=== PATIENT | male | born 1955 | race Caucasian/White ===

== ENCOUNTER 2018-08-07 07:28 | Inpatient (IN) | payer OTHER ==
[2018-08-07] MEDS ORDERED: ONDANSETRON 4 MG/2 ML VIAL IVPUSH ONE (07:40)
[2018-08-07] MEDS ORDERED: morphine CARPU-JECT 4 MG/1 ML DISP.SYRIN IVPUSH ONE (07:40)
[2018-08-07] MEDS ORDERED: SODIUM CHLORIDE 1,000 ML IV ONE (07:40)
[2018-08-07] MEDS ORDERED: HYDROmorphone HCL CARPU-JECT 1 MG/1 ML DISP.SYRIN IVPUSH ONE ×2 (07:45→10:02)
[2018-08-07] MEDS ORDERED: ONDANSETRON 4 MG/2 ML VIAL ONE (07:45)
[2018-08-07] MEDS ORDERED: HYDROmorphone HCL CARPU-JECT 1 MG/1 ML DISP.SYRIN ONE ×2 (07:45→10:02)
--- NOTE | 2018-08-07 08:11 | PDOC ---
History of Present Illness - General Chief Complaint: Pain Stated Complaint: llq pain Time Seen by Provider: 08/07/18 07:32 History Source: Patient Exam Limitations: No Limitations - History of Present Illness Initial Comments: 08/07/18 08:05 63-year-old male with history of chronic pain syndrome and diverticulitis resents with 3-4 days of progressive left lower quadrant pain similar to past diverticulitis. Patient recalls relatively acute onset of left lower quadrant pain while having an otherwise normal bowel movement 4 days ago, since then pain has been persistent but increasing in severity and radiating to the right lower quadrant. Associated with watery diarrhea with no bloody stool, one episode of nonbloody nonbilious vomiting last night after he attempted to eat solid food. Decreased oral intake, no fevers or chills or night sweats. Denies any urinary complaints, denies any rash or swelling. Did not take anything for pain other than his baseline meds for his musculoskeletal pains, presents for evaluation. No intra-abdominal surgical history. Past History - Past Medical History Allergies/Adverse Reactions: Allergies Allergy/AdvReac Type Severity Reaction Status Date / Time folic acid Allergy Verified 08/07/18 07:31 Home Medications: Ambulatory Orders Alprazolam [Xanax] 0.5 mg PO BID 05/30/12 Cholecalciferol (Vitamin D3) [Vitamin D] 5,000 unit PO DAILY 05/30/12 FENTANYL 100mcg PATCH [DURAGESIC 100mcg PATCH -] 300 mcg TD Q72H 05/30/12 PARoxetine HCL "CR" SUST REL [Paxil Cr -] 25 mg PO DAILY 05/30/12 Anemia: No Asthma: No Cancer: No Cardiac Disorders: No CVA: No COPD: No CHF: No Dementia: No Diabetes: No GI Disorders: No Disorders: No HTN: No Hypercholesterolemia: No Liver Disease: No Seizures: No Thyroid Disease: No - Surgical History Abdominal Surgery: No Appendectomy: No Cardiac Surgery: No Cholecystectomy: No Lung Surgery: No Neurologic Surgery: No Orthopedic Surgery: Yes (VICTORINA SHOULDER ARTHROSCOPY) - Suicide/Smoking/Psychosocial Hx Smoking History: Former smoker Have you smoked in the past 12 months: No If you are a former smoker, when did you quit?: 1979 Hx Alcohol Use: Yes (SOCIALLY) Drug/Substance Use Hx: No Substance Use Type: None Hx Substance Use Treatment: No Review of Systems - Review of Systems Constitutional: No: Chills, Fever, Night Sweats Respiratory: No: Shortness of Breath Cardiac (ROS): No: Chest Pain ABD/GI: Yes: See HPI, Diarrhea, Nausea, Vomiting : No: Dysuria, Flank Pain, Hematuria Neurological: No: Headache All Other Systems: Reviewed and Negative *Physical Exam - Physical Exam Comments: 08/07/18 08:09 afebrile GENERAL: The patient is awake, alert, and fully oriented, in moderate distress 2 /2 abdominal pain HEAD: Normal with no signs of trauma. EYES: PERRL, EOMI, sclera anicteric, conjunctiva clear with no pallor. ENT: oropharynx clear without exudates. Dry mucous membranes. NECK: Normal range of motion, supple without lymphadenopathy. LUNGS: Breath sounds equal, clear to auscultation bilaterally. No wheeze/ crackles. HEART: Regular rate and rhythm, normal S1 and S2 without murmur or rub. ABDOMEN: Soft/nondistended. + tenderness with guarding greatest in the LLQ but also notable in the RLQ. BS nl to decreased. + rebound. No palpable masses/ hernias. No hepatosplenomegaly. No CVAT. EXTREMITIES: RUE in sling for comfort 2/2 pain, otherwise normal range of motion , no edema. 2+ distal pulses. No cords, erythema, or tenderness. NEUROLOGICAL: Cranial nerves II through XII grossly intact. Normal speech, normal gait. PSYCH: Normal mood, normal affect. SKIN: RLQ subcutaneous device for pain. Warm, Dry, no rashes or lesions noted. Heart Score/ECG Review #1 ECG reviewed & interpreted by me at: 08:06 General ECG Interpretation: Sinus Rhythm, Normal Rate (86), Normal Intervals ( qtc 440), No acute ischemic changes ED Treatment Course - LABORATORY CBC & Chemistry Diagram: 08/07/18 08:16 08/07/18 08:16 - RADIOLOGY Radiology Studies Ordered: Category Date Time Status ABDOMEN & PELVIS CT WITH CONTR [CT] Stat CT Scan 08/07/18 07:41 Ordered Medical Decision Making - Medical Decision Making 08/07/18 08:12 63-year-old male with history of diverticulitis presents with worsening lower quadrant pain and peritoneal findings on exam. Presentation could be consistent with exacerbation of diverticulitis, rule out superimposed perforation/abscess. Possible colitis, appendicitis, less likely urinary etiology. No evidence of hernia. Labs, urinalysis EKG IV fluid rehydration, pain control CT of the abdomen and pelvis No evidence of SIRS or sepsis at this time, will give antibiotics accordingly Likely admission 08/07/18 08:54 Leukocytosis 13 with normal differential, normal creatinine, mild hyponatremia, hypokalemia, hypochloremia. Lipase pending. Receiving IV fluids, will give potassium. Pain improved with Dilaudid, in route CAT scan. 08/07/18 10:25 CT shows unchanged bilary dilatation, diverticulosis without diverticulitis, but dilated appendix with inflammatory changes suspicious for appendicitis. new lung nodule requiring additional imaging/follow-up. zosyn ordered. Findings discussed with Dr. Saavedra (pt's PCP) who accepts for inpatient med surg. Patient and Quentin request Tino/Jessica for surgery, who were consulted. 08/07/18 11:[address] Jiménez, who will see the patient and arrange for OR likely later today. Pt has been admitted to inpatient floor and information passed on to inpatient team. *DC/Admit/Observation/Transfer Diagnosis at time of Disposition: Abdominal pain, left lower quadrant Acute appendicitis Qualifiers: Acute appendicitis type: with localized peritonitis Appendicitis gangrene presence: unspecified whether gangrene present Appendicitis perforation presence : without perforation Appendicitis abscess presence: without abscess Qualified Code(s): K35.30 - Acute appendicitis with localized peritonitis, without perforation or gangrene - Discharge Dispostion Condition at time of disposition: Fair - Referrals - Patient Instructions - Post Discharge Activity
[2018-08-07 08:24] LABS: BASO % 0.2 % (0-2.0); EOS % 0.2 % (0-4.5); HEMATOCRIT 43.6 % (35.4-49); HEMOGLOBIN 14.8 GM/dl (11.7-16.9); LYMPH % 11.8 % (8-40); MCH 31.5 pg (25.7-33.7); MCHC 33.9 g/dl (32.0-35.9); MEAN CELL VOLUME 92.9 fl (80-96); MEAN PLT VOLUME 8.1 fl (7.5-11.1); MONO % 5.4 % (3.8-10.2); NEUT % 82.4 % (42.8-82.8); PLATELET COUNT 151 K/MM3 (134-434); RBC 4.69 M/mm3 (4.00-5.60); RDW 13.8 % (11.9-15.9); WHITE BLOOD COUNT 13.1 K/mm3 (4.0-10.8)
[2018-08-07 08:33] LABS: ALBUMIN 3.7 g/dl (3.4-5.0); ALK PHOS 144 U/L (45-117); ANION GAP 11 MMOL/L (8-16); BLOOD UREA NITROGEN 12 mg/dl (7-18); CALCIUM 8.8 mg/dl (8.5-10); CHLORIDE 90 mmol/L (98-107); CO2 33 mmol/L (21-32); CREATININE 0.9 mg/dl (0.55-1.3); GLUCOSE,RANDOM 119 mg/dl (74-106); POTASSIUM 3.2 mmol/L (3.5-5.1); SGOT/AST 21 U/L (15-37); SGPT/ALT 7 U/L (13-61); SODIUM 134 mmol/L (136-145)
[2018-08-07] MEDS ORDERED: POTASSIUM CHLORIDE TABS 20 MEQ TABLET.ER (FP) PO ONE (08:52)
[2018-08-07 09:00] LABS: URINE APPEARANCE CLEAR; URINE BILIRUBIN NEGATIVE (NEGATIVE); URINE COLOR AMBER; URINE GLUCOSE (UA) NEGATIVE (NEGATIVE); URINE KETONE NEGATIVE (NEGATIVE); URINE LEUK ESTERASE NEGATIVE (NEGATIVE); URINE NITRITE NEGATIVE (NEGATIVE); URINE PROTEIN NEGATIVE (NEGATIVE); URINE UROBILINOGEN 4.0 E.U/dl (0.2-1.0)
[2018-08-07 09:24] LABS: LIPASE 83 U/L (73-393)
[2018-08-07] MEDS ORDERED: PIPERACILLIN/TAZOB 4.5 GM 4.5 GM in DEXTROSE 5%-WATER 100 ML IVPB ONE (09:58)
[2018-08-07] MEDS ORDERED: PIPERACILLIN/TAZOBACTAM 4.5 GM VIAL IVPB ONE (10:02)
[2018-08-07] MEDS ORDERED: KCL 10 MEQ IVPB 10 MEQ/100 ML INFUS.BAG IVPB ONE (10:26)
[2018-08-07] MEDS: KCL 10 MEQ IVPB 10 MEQ/100 ML INFUS.BAG IVPB SCH ×3 (11:00→17:40)
[2018-08-07] MEDS ORDERED: HYDROmorphone HCL CARPU-JECT 1 MG/1 ML DISP.SYRIN IVPUSH PRN (11:41)
[2018-08-07] MEDS ORDERED: D5-1/2NS+20 MEQ KCL - 20 MEQ/1,000 ML INFUS.BAG IV SCH ×2 (11:45→15:00)
[2018-08-07] MEDS ORDERED: HYDROmorphone HCl 2 MG/ML VIAL IVPB PRN (13:55)
[2018-08-07] MEDS ORDERED: ROCURONIUM BROMIDE 50 MG/5 ML VIAL ONE (14:03)
[2018-08-07] MEDS ORDERED: SUCCINYLCHOLINE CHLORIDE 200 MG/10 ML VIAL ONE (14:03)
[2018-08-07] MEDS ORDERED: MIDAZOLAM HCL 2 MG/2 ML SINGLE DOSE VIAL ONE (14:03)
[2018-08-07] MEDS ORDERED: NALOXONE HCL 0.4 MG/ML VIAL IVPUSH PRN (14:22)
[2018-08-07] MEDS ORDERED: ONDANSETRON 4 MG/2 ML VIAL IVPUSH PRN (14:42)
[2018-08-07] MEDS ORDERED: oxyCODONE HCL 5 MG TABLET PO PRN ×2 (14:42→17:31)
[2018-08-07] MEDS ORDERED: morphine SULFATE 4 MG/ML VIAL IVPB PRN (14:42)
[2018-08-07] MEDS ORDERED: HYDROmorphone HCL/PF 1 MG/ML AMP ONE ×4 (14:46)
[2018-08-07] MEDS ORDERED: PIPERACILLIN/TAZOB 4.5 GM 4.5 GM in DEXTROSE 5%-WATER 100 ML IVPB SCH (15:00)
[2018-08-07] MEDS ORDERED: ePHEDrine SULFATE 50 MG/1 ML AMPULE ONE (15:05)
[2018-08-07] MEDS ORDERED: DEXAMETHASONE SOD PHOSPHATE 4 MG/1 ML VIAL ONE (15:15)
[2018-08-07] MEDS ORDERED: BUPIVACAINE HCL/PF 2.5 MG/ML - 30 ML VIAL IJ ONE (15:15)
[2018-08-07] MEDS ORDERED: NEOSTIGMINE METHYLSULFATE 0.5 MG/ML - 10 ML MDV ONE (15:26)
--- NOTE | 2018-08-07 16:11 | PN ---
"[facility] Progress Note Note: advised by nursing that pt is in the OR . anna haley, 1955 Search Date: 08/07/2018 04:15:43 PM The Drug Utilization Report below displays all of the controlled substance prescriptions, if any, that your patient has filled in the last twelve months. The information displayed on this report is compiled from pharmacy submissions to the Department, and accurately reflects the information as submitted by the pharmacies. This report was requested by: Prisca Murillo | Reference #: [id number] Others' Prescriptions Patient Name: Anna Haley Date: 1955 Address: [address] [place] [address] Sex: Male Rx Written Rx Dispensed Drug Quantity Days Supply Prescriber Name 07/06/2018 07/06/2018 fentanyl 100 mcg/hr patch 30 30 Mulu Saavedra MD 07/06/2018 07/06/2018 alprazolam 0.5 mg tablet 90 30 Guy, Dipan P 06/08/2018 06/08/2018 fentanyl 100 mcg/hr patch 30 30 Mulu Saavedra MD 06/08/2018 06/08/2018 alprazolam 0.5 mg tablet 90 30 Guy, Dipan P 05/09/2018 05/11/2018 fentanyl 100 mcg/hr patch 30 30 Mulu Saavedra MD 04/18/2018 05/08/2018 infumorph 500 mg/20 ml ampul 1ml 105 Arpit Barber MD 04/09/2018 04/12/2018 fentanyl 100 mcg/hr patch 30 30 Mulu Saavedra MD 04/05/2018 04/10/2018 alprazolam 0.5 mg tablet 90 30 Guy, Dipan P 03/12/2018 03/12/2018 fentanyl 100 mcg/hr patch 30 30 Mulu Saavedra MD 02/05/2018 02/12/2018 fentanyl 100 mcg/hr patch 30gm 30 Mulu Saavedra MD 01/03/2018 01/12/2018 fentanyl 100 mcg/hr patch 30gm 30 Guy, Dipan P 01/03/2018 01/03/2018 alprazolam 0.5 mg tablet 90 30 Guy, Dipan P 12/06/2017 12/07/2017 alprazolam 0.5 mg tablet 90 30 Mulu Saavedra MD 12/06/2017 12/07/2017 fentanyl 100 mcg/hr patch 30gm 30 Mulu Saavedra MD 11/08/2017 11/08/2017 alprazolam 0.5 mg tablet 90 30 Mulu Saavedra MD 11/08/2017 11/08/2017 fentanyl 100 mcg/hr patch 30gm 30 Mulu Saavedra MD 10/09/2017 10/10/2017 fentanyl 100 mcg/hr patch 30gm 30 Mulu Saavedra MD 09/07/2017 09/08/2017 alprazolam 0.5 mg tablet 90 30 Mulu Saavedra MD 09/07/2017 09/08/2017 fentanyl 100 mcg/hr patch 30gm 30 Mulu Saavedra MD Patient Name: Anna Haley Date: 1955 Address: [address] [place] [address] Sex: Male Rx Written Rx Dispensed Drug Quantity Days Supply Prescriber Name 01/16/2018 01/18/2018 morphine sulfate powder * 1gm 1 Arpit Barber MD 10/07/2017 10/12/2017 morphine sulfate powder * 1gm 1 Arpit Barber MD * - Drugs marked with an asterisk are compound drugs. If the compound drug is made up of more than one controlled substance, then each controlled substance will be a separate row in the"
[2018-08-07] MEDS ORDERED: PROMETHAZINE HCL 25 MG/1 ML VIAL IVPUSH PRN (17:31)
--- NOTE | 2018-08-07 17:38 | CONS ---
DATE OF CONSULTATION: DATE OF DICTATION: 08/07/2018 SURGICAL CONSULTATION BRIEF HISTORY: This is a 63-year-old gentleman with a multitude of issues who presented to the hospital with 4-day history of abdominal discomfort. Initially this gentleman thought it was diverticular in nature because he has a history of diverticulitis, but as the days progressed, his pain became more localized to the right lower quadrant. He was brought to the ER this morning, underwent a CAT scan that had findings suggestive of acute appendicitis. He has a white count of 14, 000. He is here today for management of his appendicitis. PAST MEDICAL HISTORY: Significant for chronic pain syndrome, diverticulitis. Please refer to chart for remainder of issues. PAST SURGICAL HISTORY: No abdominal surgery. MEDICATION: Alprazolam, vitamin D, fentanyl, and paroxetine. SOCIAL HISTORY: Patient does not smoke. He drinks socially. ALLERGIES: None. PHYSICAL EXAMINATION: Abdomen: Soft, scaphoid. There is right lower quadrant tenderness with guarding, plus/minus rebound. IMPRESSION/PLAN: Acute appendicitis. Will plan for attempt at laparoscopic appendectomy. Patient has infection, and I suspect given his long course he most likely has perforated as well. If he truly is perforated, his risks of needing the pain pump will be greater. This was explained to both patient and his , and they understand, and still will proceed with an appendectomy. Darrin NIELSON [id number] cc: Darrin Bullock
[2018-08-07] MEDS ORDERED: POTASSIUM CHLORIDE 10 MEQ PREMIX IVPB (POTASSIUM RIDER) IVPB ONE ×2 (18:00)
--- NOTE | 2018-08-07 18:18 | PN ---
Progress Note (short form) - Note Progress Note: GI Note: Consult request noted. I do not practice at [facility]. Please consult one of the [facility] GI physicians.
[2018-08-07] MEDS ORDERED: PIPERACILLIN/TAZOB 3.375 GM 3.375 GM in DEXTROSE 5%-WATER - 50 ML IVPB SCH (18:30)
[2018-08-07] MEDS ORDERED: ACETAMINOPHEN 1000 MG/100 ML VIAL (NON FORMULARY) IVPB PRN (19:13)
--- NOTE | 2018-08-07 19:13 | HP ---
Admitting History and Physical - Past Medical History SOFTWARE APPLICATIONS DESIGNER: Yes: Other (neuropathy) Cardiovascular: Yes: HTN - Smoking History Smoking history: Former smoker Have you smoked in the past 12 months: No If you are a former smoker, when did you quit?: 1979 - Alcohol/Substance Use Hx Alcohol Use: Yes (SOCIALLY) Home Medications - Allergies Allergies/Adverse Reactions: Allergies Allergy/AdvReac Type Severity Reaction Status Date / Time folic acid Allergy Verified 08/07/18 07:31 - Home Medications Home Medications: Ambulatory Orders Alprazolam [Xanax] 0.5 mg PO BID 05/30/12 Cholecalciferol (Vitamin D3) [Vitamin D] 5,000 unit PO DAILY 05/30/12 FENTANYL 100mcg PATCH [DURAGESIC 100mcg PATCH -] 300 mcg TD Q72H 05/30/12 PARoxetine HCL "CR" SUST REL [Paxil Cr -] 25 mg PO DAILY 05/30/12 Review of Systems - Review of Systems Cardiovascular: reports: No Symptoms Respiratory: reports: No Symptoms Gastrointestinal: reports: Abdominal Pain (on admisiond--had appendectomy-- feels better) Neurological: reports: Parasthesia Physical Examination Vital Signs: Vital Signs Temperature 98.7 F 08/07/18 15:54 Pulse Rate 69 08/07/18 18:25 Respiratory Rate 14 08/07/18 18:25 Blood Pressure 133/81 08/07/18 18:25 O2 Sat by Pulse Oximetry (%) 99 08/07/18 18:25 Cardiovascular: Yes: Regular Rate and Rhythm Respiratory: Yes: Regular, CTA Bilaterally Gastrointestinal: Yes: Soft. No: Tenderness Edema: No Labs: CBC, BMP 08/07/18 08:16 08/07/18 08:16 Problem List - Problems (1) S/P appendectomy Assessment/Plan: plan per surgery iv abx Code(s): Z90.49 - ACQUIRED ABSENCE OF OTHER SPECIFIED PARTS OF DIGESTIVE TRACT (2) Sympathetic pain Assessment/Plan: on duragesic patch Code(s): M79.2 - NEURALGIA AND NEURITIS, UNSPECIFIED (3) HTN (hypertension) Assessment/Plan: monitor Code(s): I10 - ESSENTIAL (PRIMARY) HYPERTENSION (4) Dilated bile duct Assessment/Plan: further w/u as outpatient Code(s): K83.8 - OTHER SPECIFIED DISEASES OF BILIARY TRACT (5) Pulmonary nodules Assessment/Plan: pulm consult Code(s): R91.8 - OTHER NONSPECIFIC ABNORMAL FINDING OF LUNG FIELD (6) Acute appendicitis Assessment/Plan: as above abx cbc Code(s): K35.80 - UNSPECIFIED ACUTE APPENDICITIS Qualifiers: Acute appendicitis type: with localized peritonitis Appendicitis gangrene presence: unspecified whether gangrene present Appendicitis perforation presence: without perforation Appendicitis abscess presence: without abscess Qualified Code(s): K35.30 - Acute appendicitis with localized peritonitis, without perforation or gangrene
--- NOTE | 2018-08-07 19:44 | EKG ---
Test Reason : Blood Pressure : / mmHG Vent. Rate : 088 BPM Atrial Rate : 088 BPM P-R Int : 114 ms QRS Dur : 064 ms QT Int : 364 ms P-R-T Axes : 086 069 061 degrees QTc Int : 440 ms NORMAL SINUS RHYTHM POOR DATA QUALITY IN CURRENT ECG PRECLUDES SERIAL COMPARISON Normal ECG. Confirmed by MD VAIBHAV, KOTA ([id number]) on 08/07/2018 7:44:03 PM Referred By: JAYMIE MILLER Confirmed By:KOTA ESPOSITO MD
--- NOTE | 2018-08-07 20:44 | PN ---
Progress Note (short form) - Note Progress Note: ID CONSULT DICTATED S/P LAPAROSCOPIC APPENDECTOMY PERFORATED APPENDIX WITH PERITONITIS R/O SEPSIS SECONDARY TO PERITONITIS PENDING C/S CONTINUE EMPIRIC ZOSYN
--- NOTE | 2018-08-07 20:47 | OP ---
DATE OF OPERATION: 08/07/2018 PREOPERATIVE DIAGNOSIS: Acute appendicitis. POSTOPERATIVE DIAGNOSIS: Acute appendicitis, locally perforated appendix with intraabdominal abscess. PROCEDURE: Laparoscopic appendectomy, partial colectomy, drainage of abscess, peritoneal lavage. SURGEON: Wade Miranda M.D. CFD ENGINEER: None. ANESTHESIA: aCmeron Soriano M.D. (general) INDICATIONS FOR PROCEDURE: This is a 63-year-old gentleman admitted with acute appendicitis. He is here today for appendectomy. Patient identified and appropriately positioned on the operative table, placed under general anesthesia. The abdomen prepped and draped in usual sterile fashion with ChloraPrep. A supraumbilical incision was made, deepened through the subcutaneous tissue. The peritoneum incised under direct vision. The Veress needle placed, followed by structural needle placed. The remaining 2 ports placed under direct vision as well as suprapubic 12-mm port and a left lower quadrant 5-mm port. The appendix identified in the right lower quadrant. There was pus in the right lower quadrant. The patient had locally perforated. The pus was locally suctioned, irrigated. The mesoappendix identified, serially divided with LigaSure device. Four wells placed prior to complete division. The mesoappendix and the fold of Treves were taken down with the LigaSure device. This allowed adequate visualization of the appendix entering the cecum. The terminal ileum identified as well. Next, an Endo SABINO blue 60-load stapler was used for the division of the appendix at its base. This was placed through the 12-mm port site. The appendix was subsequently divided along with a portion of the cecum. Portion of the cecum had to be taken (the colon) due to the thickening from the appendix itself. This allowed stapling in a soft viable area. The staple line grossly was intact. The colon was viable without evidence of ischemia. The specimen was placed in an EndoCatch bag and brought out through the 12-mm port site. The right lower quadrant now copiously irrigated with warm saline. The irrigant retrieved. The operative field noted to be hemostatic. The staple line intact as mentioned. Ports were removed. Port sites were noted to be hemostatic. The fascia at the 12 and supraumbilical port site reapproximated with interrupted 0 Vicryl suture. All skin closed with 4-0 single Biosyn, followed by Dermabond. At the conclusion of this case, sponge counts correct. ATTESTATION: A brief operative note handwritten on the preprinted form and [facility] will be queried prior to giving any narcotics. Darrin NIELSON [id number] cc: Mulu Saavedra MD [facility]
--- NOTE | 2018-08-08 00:17 | CONS ---
DATE OF CONSULTATION: 08/07/2018 The patient is a 63-year-old male with a history of chronic pain syndrome and diverticulitis who was admitted to [facility] with a 3 to 4 day history of left lower quadrant abdominal pain. He developed acute onset of left lower quadrant abdominal pain approximately 3 to 4 days prior to admission. It became increasingly severe and radiated to the right lower quadrant. It was associated with watery diarrhea, but no bloody stool. He had 1 episode of nonbloody, nonbilious vomiting after attempting to eat food. He reported decreased oral intake. No reports of fever or chills. He was evaluated in the emergency room where a CAT scan of the abdomen and pelvis was performed. It showed a dilated appendix with enhancement of its wall and mild stranding of the surrounding fat suspicious for acute appendicitis. The patient was seen in consultation by Surgery and was taken to the operating room where a laparoscopic appendectomy was performed. According to the operative report, he was found to have acute appendicitis with locally perforated appendix with intraabdominal abscess. A laparoscopic appendectomy, partial colectomy, drainage of abscess and peritoneal lavage was performed. His course was complicated by low-grade fever to 100 and elevated white blood cell count of 13,000. Cultures were obtained. He was empirically treated with Zosyn. Patient was seen postoperatively. He is awake and alert. He complains of some mild postoperative pain. He is in no acute distress. PAST MEDICAL HISTORY: Positive for hypertension, neuropathy. PAST SURGICAL HISTORY: Status post placement of intrathecal analgesic pump. ALLERGIES: FOLIC ACID. MEDICATIONS: Include Tylenol, Lovenox, Dilaudid, morphine sulfate, Zofran, and Zosyn. SOCIAL HISTORY: Former smoker. LABORATORY DATA: White count 13.1, hematocrit 43.6, platelet count 151, BUN 12, creatinine 0.9. Urinalysis is negative. Cultures are pending. PHYSICAL EXAMINATION: General: He is awake and alert, in no acute distress, supine in bed. Vital Signs: Temperature 98.7, blood pressure 144/78, pulse 74 and regular, respirations 16 per minute. HEENT: Sclerae anicteric. Heart Sounds: S1, S2. Lungs: Clear. Abdomen: Soft, positive incisional discomfort and incisional tenderness. Laparoscopic incisions; no erythema or drainage. Extremities: Negative for edema. IMPRESSION: 1. Status post laparoscopic appendectomy for perforated appendix. 2. Perforated appendix with peritonitis. 3. Rule out sepsis secondary to peritonitis. PLAN: Await culture results. Continue empiric antibiotic coverage of intraabdominal pathogens with Zosyn. Analgesics. Will follow. Thank you for the kind referral. GINA VILLAGOMEZ M.D. [id number]
[2018-08-08] MEDS ORDERED: DEXTROSE 5%-WATER - 50 ML IVPB ONE ×4 (00:23→20:19)
[2018-08-08] MEDS ORDERED: PIPERACILLIN/TAZOBACTAM 3.375 GM VIAL IVPB ONE ×4 (00:23→20:19)
[2018-08-08] MEDS: PIPERACILLIN/TAZOB 3.375 GM 3.375 GM in DEXTROSE 5%-WATER - 50 ML IVPB SCH ×3 (00:25→17:10)
[2018-08-08] MEDS: ENOXAPARIN NA (PORCINE) 40 MG/0.4 ML DISP.SYRIN SQ SCH (05:58)
[2018-08-08 07:55] LABS: HEMOGLOBIN 10.9 GM/dl (11.7-16.9)
--- NOTE | 2018-08-08 07:57 | PN ---
Progress Note, Physician History of Present Illness: comfortable this am no n/v no abd pain this am - Current Medication List Current Medications: Active Medications Acetaminophen (Ofirmev Injection -) 1,000 mg IVPB Q6H PRN PRN Reason: MODERATE PAIN Enoxaparin Sodium (Lovenox -) 40 mg SQ DAILY [facility] Last Admin: 08/08/18 05:58 Dose: 40 mg Fentanyl (Sublimaze Injection -) 50 mcg IVPUSH [id number] PRN PRN Reason: PAIN-PACU ORDER X 4 DOSES ONLY Potassium Chloride/Dextrose/Sod Cl (D5-1/2ns+20 Meq Kcl -) 20 meq in 1,000 mls @ 100 mls/hr IV ASDIR GAL Last Admin: 08/07/18 18:47 Dose: Not Given Piperacillin Sod/Tazobactam (Sod 3.375 gm/ Dextrose) 50 mls @ 100 mls/hr IVPB Q8H-IV GAL; Protocol Last Admin: 08/08/18 00:25 Dose: 100 mls/hr Morphine Sulfate (Morphine Sulfate) 4 mg IVPB Q3H PRN PRN Reason: PAIN LEVEL 1-3 Naloxone HCl (Narcan -) 0.4 mg IVPUSH PRN PRN PRN Reason: RESPIRATORY DEPRESSION Ondansetron HCl (Zofran Injection) 4 mg IVPUSH Q6H PRN PRN Reason: NAUSEA Oxycodone HCl (Roxicodone -) 7.5 mg PO Q4H PRN PRN Reason: PAIN LEVEL 4-6 Oxycodone HCl (Roxicodone -) 10 mg PO Q4H PRN PRN Reason: PAIN LEVEL 6-10 Pantoprazole Sodium (Protonix Iv) 40 mg IVPUSH DAILY [facility] Promethazine HCl (Phenergan Injection -) 12.5 mg IVPUSH Q6H PRN PRN Reason: NAUSEA-FOR RESCUE AFTER 15 MIN - Objective Vital Signs: Vital Signs Temperature 97.9 F 08/08/18 06:00 Pulse Rate 67 08/08/18 06:00 Respiratory Rate 18 08/08/18 07:35 Blood Pressure 126/74 08/08/18 06:00 O2 Sat by Pulse Oximetry (%) 100 08/07/18 19:10 Cardiovascular: Yes: Regular Rate and Rhythm Respiratory: Yes: Regular, CTA Bilaterally Gastrointestinal: Yes: Normal Bowel Sounds, Soft. No: Tenderness Edema: No Neurological: Yes: Alert, Oriented Problem List - Problems (1) S/P appendectomy Assessment/Plan: plan per surgery iv abx Code(s): Z90.49 - ACQUIRED ABSENCE OF OTHER SPECIFIED PARTS OF DIGESTIVE TRACT (2) Sympathetic pain Assessment/Plan: on duragesic patch Code(s): M79.2 - NEURALGIA AND NEURITIS, UNSPECIFIED (3) HTN (hypertension) Assessment/Plan: monitor Code(s): I10 - ESSENTIAL (PRIMARY) HYPERTENSION (4) Dilated bile duct Assessment/Plan: further w/u as outpatient Code(s): K83.8 - OTHER SPECIFIED DISEASES OF BILIARY TRACT (5) Pulmonary nodules Assessment/Plan: pulm consult Code(s): R91.8 - OTHER NONSPECIFIC ABNORMAL FINDING OF LUNG FIELD (6) Acute appendicitis Assessment/Plan: as above abx cbc Code(s): K35.80 - UNSPECIFIED ACUTE APPENDICITIS Qualifiers: Acute appendicitis type: with localized peritonitis Appendicitis gangrene presence: unspecified whether gangrene present Appendicitis perforation presence: without perforation Appendicitis abscess presence: without abscess Qualified Code(s): K35.30 - Acute appendicitis with localized peritonitis, without perforation or gangrene
[2018-08-08 08:02] LABS: BASO % 0.1 % (0-2.0); HEMATOCRIT 33.4 % (35.4-49); LYMPH % 8.2 % (8-40); MCH 30.8 pg (25.7-33.7); MCHC 32.7 g/dl (32.0-35.9); MEAN CELL VOLUME 94.1 fl (80-96); MEAN PLT VOLUME 8.3 fl (7.5-11.1); MONO % 4.5 % (3.8-10.2); NEUT % 87.2 % (42.8-82.8); PLATELET COUNT 106 K/MM3 (134-434); RBC 3.54 M/mm3 (4.00-5.60); RDW 13.8 % (11.9-15.9); WHITE BLOOD COUNT 14.1 K/mm3 (4.0-10.8)
[2018-08-08 08:07] LABS: ALBUMIN 2.7 g/dl (3.4-5.0); ALK PHOS 90 U/L (45-117); ANION GAP 7 MMOL/L (8-16); BILIRUBIN,TOTAL 0.8 mg/dl (0.2-1); BLOOD UREA NITROGEN 13 mg/dl (7-18); CALCIUM 8.3 mg/dl (8.5-10); CHLORIDE 98 mmol/L (98-107); CO2 28 mmol/L (21-32); CREATININE 0.8 mg/dl (0.55-1.3); GLUCOSE,RANDOM 140 mg/dl (74-106); POTASSIUM 4.2 mmol/L (3.5-5.1); SGOT/AST 18 U/L (15-37); SGPT/ALT 6 U/L (13-61); SODIUM 133 mmol/L (136-145); TOT PROT 5.5 g/dl (6.4-8.2)
[2018-08-08] MEDS ORDERED: PIPERACILLIN/TAZOB 4.5 GM 4.5 GM in DEXTROSE 5%-WATER 100 ML IVPB SCH (09:00)
--- NOTE | 2018-08-08 09:04 | PN ---
Progress Note, Physician History of Present Illness: AWAKE, ALERT NO C/O ABDOMINAL PAIN, N/V NO BM/ FLATUS YET TOLERATED SOFT DIET THIS AM NO F/C WBC SLIGHTLY ELEVATED 14K BC NO GROWTH - Current Medication List Current Medications: Active Medications Acetaminophen (Ofirmev Injection -) 1,000 mg IVPB Q6H PRN PRN Reason: MODERATE PAIN Enoxaparin Sodium (Lovenox -) 40 mg SQ DAILY [facility] Last Admin: 08/08/18 05:58 Dose: 40 mg Fentanyl (Sublimaze Injection -) 50 mcg IVPUSH [id number] PRN PRN Reason: PAIN-PACU ORDER X 4 DOSES ONLY Potassium Chloride/Dextrose/Sod Cl (D5-1/2ns+20 Meq Kcl -) 20 meq in 1,000 mls @ 100 mls/hr IV ASDIR [facility] Last Admin: 08/07/18 18:47 Dose: Not Given Piperacillin Sod/Tazobactam (Sod 3.375 gm/ Dextrose) 50 mls @ 100 mls/hr IVPB Q8H-IV [facility]; Protocol Last Admin: 08/08/18 00:25 Dose: 100 mls/hr Morphine Sulfate (Morphine Sulfate) 4 mg IVPB Q3H PRN PRN Reason: PAIN LEVEL 1-3 Naloxone HCl (Narcan -) 0.4 mg IVPUSH PRN PRN PRN Reason: RESPIRATORY DEPRESSION Ondansetron HCl (Zofran Injection) 4 mg IVPUSH Q6H PRN PRN Reason: NAUSEA Oxycodone HCl (Roxicodone -) 7.5 mg PO Q4H PRN PRN Reason: PAIN LEVEL 4-6 Oxycodone HCl (Roxicodone -) 10 mg PO Q4H PRN PRN Reason: PAIN LEVEL 6-10 Pantoprazole Sodium (Protonix Iv) 40 mg IVPUSH DAILY [facility] Promethazine HCl (Phenergan Injection -) 12.5 mg IVPUSH Q6H PRN PRN Reason: NAUSEA-FOR RESCUE AFTER 15 MIN - Objective Vital Signs: Vital Signs Temperature 97.9 F 08/08/18 06:00 Pulse Rate 67 08/08/18 06:00 Respiratory Rate 18 08/08/18 07:35 Blood Pressure 126/74 08/08/18 06:00 O2 Sat by Pulse Oximetry (%) 100 08/07/18 19:10 Constitutional: Yes: No Distress Eyes: Yes: Conjunctiva Clear Cardiovascular: Yes: Regular Rate and Rhythm, S1, S2 Respiratory: Yes: CTA Bilaterally Gastrointestinal: Yes: Normal Bowel Sounds, Soft, Other (SURGICAL WOUNDS INTACT) . No: Tenderness Extremities: No: Calf Tenderness Edema: No Labs: CBC, BMP 08/08/18 07:15 08/08/18 07:15 Assessment/Plan POD#1 LAPAROSCOPIC APPENDECTOMY LEUKOCYTOSIS AWAIT C/S CONTINUE EMPIRIC ZOSYN
[2018-08-08] MEDS: PANTOPRAZOLE SODIUM 40 MG VIAL IVPUSH SCH (09:24)
--- NOTE | 2018-08-08 13:04 | CON.PULM ---
Consult Consult Specialty:: PULMONARY Referred by:: JELLY Reason for Consultation:: LUNG NODULES - History of Present Illness Chief Complaint: RECENT LAP AP History of Present Illness: 63-year-old male with history of chronic pain syndrome and diverticulitis resents with 3-4 days of progressive left lower quadrant pain similar to past diverticulitis. Patient recalls relatively acute onset of left lower quadrant pain while having an otherwise normal bowel movement 4 days ago, since then pain has been persistent but increasing in severity and radiating to the right lower quadrant. Associated with watery diarrhea with no bloody stool, one episode of non bloody non bilious vomiting last night after he attempted to eat solid food. Decreased oral intake, no fevers or chills or night sweats. Denies any urinary complaints, denies any rash or swelling. Did not take anything for pain other than his baseline meds for his musculoskeletal pains, presents for evaluation. Asked to evaluate tiny lung nodules found on CT abd. - History Source History Provided By: Patient, Medical Record Limitations to Obtaining History: No Limitations - Past Medical History [employer]: Yes: Other (neuropathy) Cardio/Vascular: Yes: HTN - Alcohol/Substance Use Hx Alcohol Use: Yes (SOCIALLY) - Smoking History Smoking history: Former smoker Have you smoked in the past 12 months: No If you are a former smoker, when did you quit?: 1979 Home Medications - Allergies Allergies/Adverse Reactions: Allergies Allergy/AdvReac Type Severity Reaction Status Date / Time folic acid Allergy Verified 08/07/18 07:31 - Home Medications Home Medications: Ambulatory Orders Alprazolam [Xanax] 0.5 mg PO HS 05/30/12 Cholecalciferol (Vitamin D3) [Vitamin D] 5,000 unit PO DAILY 05/30/12 FENTANYL 100mcg PATCH [DURAGESIC 100mcg PATCH -] 300 mcg TD Q72H 05/30/12 PARoxetine HCL "CR" SUST REL [Paxil Cr -] 25 mg PO DAILY 05/30/12 Review of Systems - Review of Systems Constitutional: reports: Unintentional Wgt. Loss Gastrointestinal: reports: Bloating Physical Exam Vital Sings: Vital Signs Temperature 98.2 F 08/08/18 09:52 Pulse Rate 65 08/08/18 09:52 Respiratory Rate 16 08/08/18 09:52 Blood Pressure 122/70 08/08/18 09:52 O2 Sat by Pulse Oximetry (%) 100 08/07/18 19:10 Constitutional: Yes: Calm, Thin Eyes: Yes: EOM Intact HENT: Yes: Normocephalic Neck: Yes: Trachea Midline Cardiovascular: Yes: Regular Rate and Rhythm Respiratory: Yes: CTA Bilaterally Gastrointestinal: Yes: Other (post-op) Edema: No Labs: CBC, BMP 08/08/18 07:15 08/08/18 07:15 Imaging - Results Chest X-ray: Report Reviewed, Image Reviewed Cat Scan: Report Reviewed, Image Reviewed Problem List - Problems (1) Abdominal pain, left lower quadrant Code(s): R10.32 - LEFT LOWER QUADRANT PAIN (2) Acute appendicitis Code(s): K35.80 - UNSPECIFIED ACUTE APPENDICITIS Qualifiers: Acute appendicitis type: with localized peritonitis Appendicitis gangrene presence: unspecified whether gangrene present Appendicitis perforation presence: without perforation Appendicitis abscess presence: without abscess Qualified Code(s): K35.30 - Acute appendicitis with localized peritonitis, without perforation or gangrene (3) HTN (hypertension) Code(s): I10 - ESSENTIAL (PRIMARY) HYPERTENSION (4) Pulmonary nodules Code(s): R91.8 - OTHER NONSPECIFIC ABNORMAL FINDING OF LUNG FIELD Assessment/Plan TINY PERIPHERAL NODULES FOUND ON CT ABD APPEAR BENIGN AND ARE LIKELY POST- INFECTIOUS WOULD SUGGEST CT CHEST TO EVALUATE REST OF LUNG PARENCHYMA WOULD FOLLOW OUTPATIENT WITH PFT'S AND PERIODIC IMAGING STUDIES Lyla RODRIGUEZ MD
[2018-08-08] MEDS ORDERED: oxyCODONE HCL 5 MG TABLET PO PRN (17:46)
[2018-08-08] MEDS ORDERED: fentaNYL 100mcg/hr PATCH.TD72 TD SCH (20:00)
[2018-08-08] MEDS ORDERED: PARoxetine HCL 20 MG TABLET (FP) PO SCH (20:00)
[2018-08-08] MEDS: POLYETHYLENE GLYCOL 3350 119 GM BTL PO SCH (21:30)
[2018-08-08] MEDS ORDERED: ALPRAZolam 0.25 MG TABLET PO SCH (22:00)
[2018-08-09] MEDS: PIPERACILLIN/TAZOB 3.375 GM 3.375 GM in DEXTROSE 5%-WATER - 50 ML IVPB SCH ×2 (03:20→10:46)
--- NOTE | 2018-08-09 07:36 | PN ---
Progress Note, Physician History of Present Illness: comfortable this am no n/v no abd pain this am HAD BM - Current Medication List Current Medications: Active Medications Acetaminophen (Ofirmev Injection -) 1,000 mg IVPB Q6H PRN PRN Reason: MODERATE PAIN Last Admin: 08/08/18 13:12 Dose: 1,000 mg Alprazolam (Xanax -) 0.5 mg PO HS [facility] Last Admin: 08/08/18 21:30 Dose: 0.5 mg Enoxaparin Sodium (Lovenox -) 40 mg SQ DAILY [facility] Last Admin: 08/08/18 05:58 Dose: 40 mg Fentanyl (Sublimaze Injection -) 50 mcg IVPUSH [id number] PRN PRN Reason: PAIN-PACU ORDER X 4 DOSES ONLY Fentanyl (Duragesic 100mcg Patch -) 1 patch TD Q72H [facility] Last Admin: 08/08/18 21:28 Dose: 1 patch Piperacillin Sod/Tazobactam (Sod 3.375 gm/ Dextrose) 50 mls @ 100 mls/hr IVPB Q8H-IV [facility]; Protocol Last Admin: 08/09/18 03:20 Dose: 100 mls/hr Naloxone HCl (Narcan -) 0.4 mg IVPUSH PRN PRN PRN Reason: RESPIRATORY DEPRESSION Ondansetron HCl (Zofran Injection) 4 mg IVPUSH Q6H PRN PRN Reason: NAUSEA Oxycodone HCl (Roxicodone -) 5 mg PO Q3H PRN PRN Reason: PAIN LEVEL 6-10 Last Admin: 08/08/18 17:55 Dose: 5 mg Pantoprazole Sodium (Protonix Iv) 40 mg IVPUSH DAILY [facility] Last Admin: 08/08/18 09:24 Dose: 40 mg Paroxetine HCl (Paxil -) 20 mg PO DAILY@1999 [facility] Last Admin: 08/08/18 21:30 Dose: 20 mg Polyethylene Glycol (Miralax (For Daily Use) -) 17 gm PO BID [facility] Last Admin: 08/08/18 21:30 Dose: 17 gm - Objective Vital Signs: Vital Signs Temperature 98.4 F 08/09/18 06:00 Pulse Rate 90 08/09/18 06:00 Respiratory Rate 19 08/09/18 06:00 Blood Pressure 124/86 08/09/18 06:00 O2 Sat by Pulse Oximetry (%) 97 08/09/18 06:00 Cardiovascular: Yes: Regular Rate and Rhythm Respiratory: Yes: Regular, CTA Bilaterally Gastrointestinal: Yes: Normal Bowel Sounds, Soft Edema: No Labs: CBC, BMP 08/08/18 07:15 08/08/18 07:15 Problem List - Problems (1) S/P appendectomy Assessment/Plan: plan per surgery--on soft diet iv abx per id Code(s): Z90.49 - ACQUIRED ABSENCE OF OTHER SPECIFIED PARTS OF DIGESTIVE TRACT (2) Sympathetic pain Assessment/Plan: on duragesic patch Code(s): M79.2 - NEURALGIA AND NEURITIS, UNSPECIFIED (3) HTN (hypertension) Assessment/Plan: monitor Code(s): I10 - ESSENTIAL (PRIMARY) HYPERTENSION (4) Dilated bile duct Assessment/Plan: further w/u as outpatient Code(s): K83.8 - OTHER SPECIFIED DISEASES OF BILIARY TRACT (5) Pulmonary nodules Assessment/Plan: pulm consult Code(s): R91.8 - OTHER NONSPECIFIC ABNORMAL FINDING OF LUNG FIELD (6) Acute appendicitis Assessment/Plan: as above abx cbc Code(s): K35.80 - UNSPECIFIED ACUTE APPENDICITIS Qualifiers: Acute appendicitis type: with localized peritonitis Appendicitis gangrene presence: unspecified whether gangrene present Appendicitis perforation presence: without perforation Appendicitis abscess presence: without abscess Qualified Code(s): K35.30 - Acute appendicitis with localized peritonitis, without perforation or gangrene
[2018-08-09 09:27] LABS: ALK PHOS 90 U/L (45-117); ANION GAP 13 MMOL/L (8-16); BILIRUBIN,TOTAL 1.1 mg/dl (0.2-1); BLOOD UREA NITROGEN 14 mg/dl (7-18); CALCIUM 8.4 mg/dl (8.5-10); CHLORIDE 88 mmol/L (98-107); CO2 27 mmol/L (21-32); CREATININE 0.7 mg/dl (0.55-1.3); GLUCOSE,RANDOM 116 mg/dl (74-106); POTASSIUM 3.8 mmol/L (3.5-5.1); SGOT/AST 20 U/L (15-37); SGPT/ALT 7 U/L (13-61); SODIUM 128 mmol/L (136-145)
[2018-08-09 09:33] LABS: HEMOGLOBIN 11.9 GM/dl (11.7-16.9); MCH 30.3 pg (25.7-33.7); MCHC 32.2 g/dl (32.0-35.9); MEAN CELL VOLUME 94.3 fl (80-96); MEAN PLT VOLUME 8.4 fl (7.5-11.1); PLATELET COUNT 122 K/MM3 (134-434); RBC 3.93 M/mm3 (4.00-5.60); RDW 13.7 % (11.9-15.9); WHITE BLOOD COUNT 11.2 K/mm3 (4.0-10.8)
--- NOTE | 2018-08-09 09:36 | PN ---
Progress Note, Physician History of Present Illness: AWAKE, ALERT NO C/O ABDOMINAL PAIN, N/V REPORTS SEVERAL SOFT BMS TOLERATING DIET NO F/C WBC PENDING BC NO GROWTH - Current Medication List Current Medications: Active Medications Acetaminophen (Ofirmev Injection -) 1,000 mg IVPB Q6H PRN PRN Reason: MODERATE PAIN Last Admin: 08/08/18 13:12 Dose: 1,000 mg Alprazolam (Xanax -) 0.5 mg PO HS [facility] Last Admin: 08/08/18 21:30 Dose: 0.5 mg Enoxaparin Sodium (Lovenox -) 40 mg SQ DAILY [facility] Last Admin: 08/08/18 05:58 Dose: 40 mg Fentanyl (Sublimaze Injection -) 50 mcg IVPUSH [id number] PRN PRN Reason: PAIN-PACU ORDER X 4 DOSES ONLY Fentanyl (Duragesic 100mcg Patch -) 1 patch TD Q72H [facility] Last Admin: 08/08/18 21:28 Dose: 1 patch Piperacillin Sod/Tazobactam (Sod 3.375 gm/ Dextrose) 50 mls @ 100 mls/hr IVPB Q8H-IV [facility]; Protocol Last Admin: 08/09/18 03:20 Dose: 100 mls/hr Naloxone HCl (Narcan -) 0.4 mg IVPUSH PRN PRN PRN Reason: RESPIRATORY DEPRESSION Ondansetron HCl (Zofran Injection) 4 mg IVPUSH Q6H PRN PRN Reason: NAUSEA Oxycodone HCl (Roxicodone -) 5 mg PO Q3H PRN PRN Reason: PAIN LEVEL 6-10 Last Admin: 08/08/18 17:55 Dose: 5 mg Pantoprazole Sodium (Protonix Iv) 40 mg IVPUSH DAILY [facility] Last Admin: 08/08/18 09:24 Dose: 40 mg Paroxetine HCl (Paxil -) 20 mg PO DAILY@1999 [facility] Last Admin: 08/08/18 21:30 Dose: 20 mg Polyethylene Glycol (Miralax (For Daily Use) -) 17 gm PO BID [facility] Last Admin: 08/08/18 21:30 Dose: 17 gm - Objective Vital Signs: Vital Signs Temperature 97.9 F 08/09/18 08:59 Pulse Rate 81 08/09/18 08:59 Respiratory Rate 18 08/09/18 08:59 Blood Pressure 120/74 08/09/18 08:59 O2 Sat by Pulse Oximetry (%) 97 08/09/18 06:00 Constitutional: Yes: No Distress Eyes: Yes: Conjunctiva Clear Cardiovascular: Yes: Regular Rate and Rhythm, S1, S2 Respiratory: Yes: CTA Bilaterally Gastrointestinal: Yes: Normal Bowel Sounds, Soft, Other (SURGICAL WOUNDS INTACT NO ERYTHEMA/DRAINAGE). No: Tenderness Edema: No Assessment/Plan POD#2 LAPAROSCOPIC APPENDECTOMY LEUKOCYTOSIS AWAIT C/S CONTINUE EMPIRIC ZOSYN
[2018-08-09 10:29] VITALS: BMI 17.4
[2018-08-09] MEDS ORDERED: PIPERACILLIN/TAZOBACTAM 3.375 GM VIAL IVPB ONE (10:39)
[2018-08-09] MEDS ORDERED: DEXTROSE 5%-WATER - 50 ML IVPB ONE (10:40)
[2018-08-09] MEDS: PANTOPRAZOLE SODIUM 40 MG VIAL IVPUSH SCH (10:42)
[2018-08-09] MEDS: ENOXAPARIN NA (PORCINE) 40 MG/0.4 ML DISP.SYRIN SQ SCH (10:44)
[2018-08-09] MEDS: POLYETHYLENE GLYCOL 3350 119 GM BTL PO SCH (10:45)
[2018-08-09] MEDS ORDERED: PANTOPRAZOLE 20 MG TABLET (FP) PO SCH (11:30)
[2018-08-09 11:38] LABS: PLATELET ESTIMATE ADEQUATE
[2018-08-09 14:25] LABS: ANION GAP 13 MMOL/L (8-16); BLOOD UREA NITROGEN 17 mg/dl (7-18); CALCIUM 8.4 mg/dl (8.5-10); CHLORIDE 87 mmol/L (98-107); CO2 27 mmol/L (21-32); CREATININE 0.8 mg/dl (0.55-1.3); GLUCOSE,RANDOM 140 mg/dl (74-106); POTASSIUM 3.5 mmol/L (3.5-5.1); SODIUM 127 mmol/L (136-145)
[2018-08-09 15:57] VITALS: BP 122/82; PULSE 80; TEMP 98.7
--- NOTE | 2018-08-09 16:04 | DS ---
Physical Examination Vital Signs: Vital Signs Temperature 98.7 F 08/09/18 15:53 Pulse Rate 80 08/09/18 15:53 Respiratory Rate 18 08/09/18 15:53 Blood Pressure 122/82 08/09/18 15:53 O2 Sat by Pulse Oximetry (%) 96 08/09/18 15:53 Labs: CBC, BMP 08/09/18 08:45 08/09/18 14:00 Discharge Summary Reason For Visit: APPENDICITIS Current Active Problems Abdominal pain, left lower quadrant (Acute) Acute appendicitis (Acute) Dilated bile duct (Acute) HTN (hypertension) (Acute) Pulmonary nodules (Acute) S/P appendectomy (Acute) Sympathetic pain (Acute) Condition: Fair - Instructions Diet, Activity, Other Instructions: BMP AND CBC ON MONDAY Disposition: HOME - Home Medications Comprehensive Discharge Medication List: Ambulatory Orders Alprazolam [Xanax] 0.5 mg PO HS 05/30/12 Cholecalciferol (Vitamin D3) [Vitamin D] 5,000 unit PO DAILY 05/30/12 FENTANYL 100mcg PATCH [DURAGESIC 100mcg PATCH -] 300 mcg TD Q72H 05/30/12 PARoxetine HCL "CR" SUST REL [Paxil Cr -] 25 mg PO DAILY 05/30/12 Amox-Tr/K Cl [Augmentin - 875Mg Tablet] 1 tab PO BID #20 tablet 08/09/18 Pantoprazole Sodium [Protonix -] 20 mg PO DAILY #30 tablet.ec 08/09/18
[2018-08-10] MEDS ORDERED: PANTOPRAZOLE 20 MG TABLET (FP) PO SCH (10:00)
--- NOTE | 2018-08-15 12:29 | PATH ---
Surgical Pathology Report Patient Name: BAKARI LAMA Med. Rec. #: [id number] /Age/Gender: 1955 (Age: 63) / M Account: [id number] Location: [facility] MED-SURG Taken: 08/07/2018 Received: 08/07/2018 Reported: 08/15/2018 Physicians: Darrin Bullock Chi Specimen(s) Received APPENDIX Clinical History Ruptured appendix Final Diagnosis APPENDIX, APPENDECTOMY: ACUTE APPENDICITIS WITH PERIAPPENDICITIS. FIBROUS OBLITERATION OF DISTAL LUMEN. Electronically Signed Christiana Suarez M.D. Gross Description Received in formalin, labeled "appendix," is a 4.5 cm. in length vermiform appendix with a stapled margin of resection and moderate attached fat. The serosa is hannon-elliott with attached exudate. The wall of the appendix averages 0.3 cm. in thickness. Layer Off sections are submitted in 2 cassettes as follows: 1-bisected distal tip of appendix; 2-cross sections of appendix. /08/08/2018 [facility]08/08/2018
== END 2018-08-09 16:34 | disposition home or self-care (01) | DRG 330 ==
LOC: FER 07:28 → FM/S 10:19
PROVIDERS: ADMIT Family Medicine; ATTEND Family Medicine
PROC: 0DBH4ZZ Excision of Cecum, Percutaneous Endoscopic Approach (ICD-10-PCS; 2018-08-07)
PROC: 0W9G4ZZ Drainage of Peritoneal Cavity, Percutaneous Endoscopic Approach (ICD-10-PCS; 2018-08-07)
PROC: 0DTJ4ZZ Resection of Appendix, Percutaneous Endoscopic Approach (ICD-10-PCS; principal; 2018-08-07 15:06)
DX: K35.32 Acute appendicitis with perforation, localized peritonitis, and gangrene, without abscess (principal); E87.1 Hypo-osmolality and hyponatremia; E87.6 Hypokalemia; M79.2 Neuralgia and neuritis, unspecified; R91.8 Other nonspecific abnormal finding of lung field; D72.829 Elevated white blood cell count, unspecified; K83.8 Other specified diseases of biliary tract; K57.90 Diverticulosis of intestine, part unspecified, without perforation or abscess without bleeding; E87.8 Other disorders of electrolyte and fluid balance, not elsewhere classified; Z87.891 Personal history of nicotine dependence
CPT/HCPCS: 36415; 74177-TC; 80048; 80053; 81003; 83690; 85025; 87040; 88304-TC; 93005; 94760; 99284-25; J0131; J7030

== ENCOUNTER 2018-11-22 10:59 | Day surgery (SDC) | payer OTHER ==
[2018-11-21 17:41] VITALS: BMI 18.6
[2018-11-22] MEDS ORDERED: PROPOFOL 20 ML ONE ×2 (12:17→13:14)
[2018-11-22] MEDS ORDERED: MIDAZOLAM HCL 2 MG/2 ML SINGLE DOSE VIAL ONE ×2 (12:17→12:58)
[2018-11-22] MEDS ORDERED: VANCOMYCIN 1,000 MG VIAL (RESTRICTED TO ID ONLY) IVPB ONE (12:30)
[2018-11-22] MEDS ORDERED: GENTAMICIN SO4 80 MG/2 ML VIAL ONE (12:31)
[2018-11-22] MEDS ORDERED: BACITRACIN 50,000 UNITS VIAL NR ONE (12:45)
[2018-11-22] MEDS ORDERED: GENTAMICIN SO4 80 MG/2 ML VIAL IVPB ONE (12:45)
[2018-11-22] MEDS ORDERED: VANCOMYCIN 1,000 MG VIAL (RESTRICTED TO ID ONLY) ONE (12:54)
[2018-11-22] MEDS ORDERED: BUPIVACAINE HCL/PF 0.25% (2.5MG/ML) 10 ML VIAL ONE (12:54)
[2018-11-22] MEDS ORDERED: ceFAZolin SODIUM 1 GM VIAL ONE (12:54)
[2018-11-22] MEDS ORDERED: LIDOCAINE 1%/EPI 1:100000 (20 ML MULTI DOSE VIAL) IJ ONE (12:58)
[2018-11-22] MEDS ORDERED: ceFAZolin SODIUM 1 GM VIAL IVPB ONE (13:00)
--- NOTE | 2018-11-22 14:51 | OP ---
Operative Note - Note: Operative Date: 11/22/18 Pre-Operative Diagnosis: Intrathecal pump replacement requirement, battery shelf life expiring Operation: Intrathecal pain pump replacement Post-Operative Diagnosis: Same as Pre-op Surgeon: Mark Forrester Assistant Librarian: Temo Wilson Anesthesiologist/UPPER SHAPER: Ricardo Alejandre Anesthesia: Local Specimens Removed: Old intrathecal pump Estimated Blood Loss (mls): 5 Operative Report Dictated: Yes
--- NOTE | 2018-11-22 14:54 | SURG ---
Surgery Africana Studies Professor Note [employer] Studies Professor: Temo Wilson PA-C Date of Service: 11/22/18 Diagnosis: Intrathecal pump replacement, battery Procedure: Intrathecal pump replacement I was present for the entirety of the operative procedure. For further detail, please refer to operative report. Visit type - Case Type Case Type: Scheduled - Emergency Emergency Visit: No - New patient This patient is new to me today: Yes Date on this admission: 11/22/18 - Critical Care Critical Care patient: No
[2018-11-22] MEDS ORDERED: ONDANSETRON 4 MG/2 ML VIAL IVPUSH PRN (16:02)
[2018-11-22] MEDS ORDERED: oxyCODONE HCL 5 MG TABLET PO PRN (16:02)
[2018-11-22] MEDS ORDERED: LACTATED RINGERS SOLUTION 1,000 ML IV SCH (16:15)
[2018-11-22 18:46] VITALS: BP 115/72; PULSE 66; TEMP 98
== END 2018-11-22 16:00 | disposition home or self-care (01) ==
LOC: JASU-SURG 10:59 → EDSTATUS 12:00 → JASU-SURG 16:00
PROVIDERS: ATTEND Neurological Surgery
PROC: 0JH80VZ Insertion of Infusion Pump into Abdomen Subcutaneous Tissue and Fascia, Open Approach (ICD-10-PCS; 2018-11-22)
PROC: 0JPT0VZ Removal of Infusion Pump from Trunk Subcutaneous Tissue and Fascia, Open Approach (ICD-10-PCS; principal; 2018-11-22 12:00)
DX: M47.12 Other spondylosis with myelopathy, cervical region (principal); G89.4 Chronic pain syndrome
CPT/HCPCS: 62362; C1772; 94760

== ENCOUNTER 2022-03-31 17:10 | Inpatient (IN) | payer OTHER ==
[2022-03-31] MEDS ORDERED: FAMOTIDINE 20 MG/50 ML IVPB 20 MG/50 ML MG IVPB ONE ×2 (17:23→17:24)
[2022-03-31] MEDS ORDERED: ONDANSETRON 4 MG/2 ML VIAL ONE (17:23)
[2022-03-31] MEDS ORDERED: ONDANSETRON 4 MG/2 ML VIAL IVPUSH ONE (17:23)
[2022-03-31 17:51] LABS: HEMATOCRIT 44.7 % (35.4-49); HEMOGLOBIN 16.1 G/dL (11.7-16.9); MCH 32.5 pg (25.7-33.7); MEAN CELL VOLUME 90.3 fl (80-96); MEAN PLT VOLUME 10.2 fl (7.5-11.1); PLATELET COUNT 149.9 10^3/uL (134-434); RBC 4.95 10^6/uL (4.00-5.60); RDW 13.9 % (11.9-15.9); WHITE BLOOD COUNT 17.1 10^3/uL (4.0-10.8)
[2022-03-31] MEDS ORDERED: MAG HYDROX/AL HYDROX/SIMETH 30 ML UNIT-DOSE CUP PO ONE (17:51)
[2022-03-31] MEDS ORDERED: HYDROmorphone HCL/PF 1 MG/ML VIAL ONE (17:51)
[2022-03-31] MEDS ORDERED: ACETAMINOPHEN 1000 MG/100 ML BAG IVPB ONE (17:51)
[2022-03-31] MEDS ORDERED: HYDROmorphone HCL CARPU-JECT 1 MG/1 ML DISP.SYRIN IVPB ONE (17:51)
[2022-03-31] MEDS ORDERED: ACETAMINOPHEN INJECTION 100 ML IVPB ONE (17:52)
[2022-03-31] MEDS ORDERED: MAG HYDROX/AL HYDROX/SIMETH 30 ML UNIT-DOSE CUP ONE (17:54)
[2022-03-31 17:56] LABS: ALBUMIN 4.7 g/dl (3.4-5.0); BILIRUBIN,TOTAL 1.2 mg/dl (0.2-1); CALCIUM 9.7 mg/dl (8.5-10); CREATININE 0.9 mg/dl (0.55-1.3)
[2022-03-31] MEDS ORDERED: HYDROmorphone HCL CARPU-JECT 2 MG/1 ML DISP.SYRIN IVPUSH ONE (18:00)
[2022-03-31] MEDS ORDERED: HYDROmorphone HCl 2 MG/ML VIAL ONE (18:01)
[2022-03-31 18:23] LABS: INR 1.18 (0.83-1.09); PROTHROMBIN TIME (PATIENT) 13.6 SEC (9.7-13.0)
[2022-03-31 18:25] LABS: ACTIVATED PTT 30.2 SECONDS (25.2-36.5)
[2022-03-31] MEDS ORDERED: LACTATED RINGERS SOLUTION 1000 ML INFUS.BAG IV ONE (18:49)
[2022-03-31 18:50] LABS: PLATELET ESTIMATE ADEQUATE
[2022-03-31] MEDS ORDERED: PIPERACILLIN/TAZOB 4.5 GM 4.5 GM in DEXTROSE 5%-WATER 100 ML IVPB ONE (18:51)
[2022-03-31] MEDS ORDERED: PIPERACILLIN/TAZOBACTAM 4.5 GM VIAL IVPB ONE (18:54)
[2022-03-31] MEDS ORDERED: ALPRAZolam 2 MG TABLET PO ONE (22:15)
[2022-03-31] MEDS ORDERED: ALPRAZolam 0.25 MG TABLET ONE (22:19)
[2022-03-31] MEDS ORDERED: LACTATED RINGERS SOLUTION 1,000 ML/1,000 ML INFUS.BAG IV SCH (23:30)
[2022-03-31 23:32] LABS: LACTIC ACID 3.9 mmol/L (0.4-2.0)
[2022-04-01] MEDS ORDERED: HYDROmorphone HCl 2 MG/ML VIAL IVPUSH PRN ×4 (04:54→16:01)
[2022-04-01] MEDS ORDERED: ACETAMINOPHEN 1000 MG/100 ML BAG IVPB PRN (04:54)
[2022-04-01] MEDS ORDERED: ONDANSETRON 4 MG/2 ML VIAL IVPUSH PRN (04:58)
[2022-04-01 06:42] VITALS: BMI 20.6
[2022-04-01] MEDS ORDERED: PIPERACILLIN/TAZOB 3.375 GM 3.375 GM in DEXTROSE 5%-WATER - 50 ML IVPB SCH ×2 (10:00→15:00)
[2022-04-01 10:20] LABS: BASO % 0.4 % (0-2.0); EOS % 0.2 % (0-4.5); HEMATOCRIT 40.8 % (35.4-49); HEMOGLOBIN 13.3 GM/dL (11.7-16.9); LYMPH % 32.1 % (8-40); MCH 29.7 pg (25.7-33.7); MCHC 32.7 g/dl (32.0-35.9); MEAN CELL VOLUME 90.8 fl (80-96); MEAN PLT VOLUME 10.6 fl (7.5-11.1); MONO % 9.1 % (3.8-10.2); NEUT % 58.2 % (42.8-82.8); PLATELET COUNT 155 10^3/uL (134-434); RBC 4.49 M/mm3 (4.00-5.60); RDW 13.4 % (11.9-15.9); WHITE BLOOD COUNT 14.6 K/mm3 (4.0-10.0)
[2022-04-01 10:44] LABS: ALBUMIN 3.8 g/dl (3.4-5.0); BLOOD UREA NITROGEN 13.7 mg/dL (7-18); CALCIUM 8.7 mg/dL (8.5-10.1); MAGNESIUM 2.2 mg/dL (1.8-2.4)
[2022-04-01 10:47] LABS: BILIRUBIN,DIRECT 0.3 mg/dL (0.0-0.2); CREATININE 1.1 mg/dL (0.55-1.3); PHOSPHOROUS 2.6 mg/dL (2.5-4.9)
[2022-04-01 10:49] LABS: TOT PROT 6.7 g/dl (6.4-8.2)
[2022-04-01] MEDS: PIPERACILLIN/TAZOB 3.375 GM 3.375 GM in DEXTROSE 5%-WATER - 50 ML IVPB SCH (12:25)
[2022-04-01] MEDS ORDERED: ceFAZolin SODIUM 1 GM VIAL IVPB ONE (12:29)
[2022-04-01] MEDS ORDERED: BUPIVACAINE HCL/PF 0.25% (2.5MG/ML) 10 ML VIAL IJ ONE ×3 (12:30)
[2022-04-01] MEDS ORDERED: BUPIVACAINE HCL/PF 0.25% (2.5MG/ML) 10 ML VIAL ONE (12:52)
[2022-04-01] MEDS ORDERED: MIDAZOLAM HCL 2 MG/2 ML SINGLE DOSE VIAL ONE (13:11)
[2022-04-01] MEDS ORDERED: PROPOFOL 20 ML ONE (13:11)
[2022-04-01] MEDS ORDERED: ROCURONIUM BROMIDE 50 MG/5 ML SYRINGE ONE (13:12)
[2022-04-01 13:33] LABS: ALBUMIN 3.7 g/dl (3.4-5.0)
[2022-04-01 13:38] LABS: BILIRUBIN,TOTAL 0.9 mg/dL (0.2-1); TOT PROT 6.8 g/dl (6.4-8.2)
[2022-04-01] MEDS ORDERED: LIDOCAINE HCL/PF 2% SDV 5ML VIAL ONE (14:31)
[2022-04-01] MEDS ORDERED: ONDANSETRON 4 MG/2 ML VIAL ONE (14:31)
[2022-04-01] MEDS ORDERED: NEOSTIGMINE METHYLSULFATE 0.5 MG/ML - 10 ML MDV ONE (14:31)
[2022-04-01] MEDS ORDERED: GLYCOPYRROLATE 0.2 MG/1 ML VIAL ONE (14:31)
[2022-04-01] MEDS ORDERED: LACTATED RINGERS SOLUTION 1,000 ML IV SCH (15:30)
[2022-04-01] MEDS ORDERED: KETOROLAC TROMETHAMINE 30 MG/1 ML VIAL IVPUSH PRN ×2 (15:31→16:01)
[2022-04-01] MEDS ORDERED: HYDROmorphone HCl 2 MG/ML VIAL ONE ×2 (15:38→16:12)
[2022-04-01] MEDS: HYDROmorphone HCl 2 MG/ML VIAL IVPUSH PRN ×3 (15:38→16:16)
[2022-04-01] MEDS: HYDROmorphone HCl 2 MG/ML VIAL IVPB PRN ×2 (15:38→16:38)
[2022-04-01] MEDS ORDERED: LABETALOL HCL 5 MG/1 ML (100MG/20 ML VIAL) ONE (15:42)
[2022-04-01] MEDS: ACETAMINOPHEN 1000 MG/100 ML BAG IVPB PRN (16:00)
[2022-04-01] MEDS ORDERED: ACETAMINOPHEN INJECTION 100 ML IVPB ONE (16:08)
[2022-04-01 16:55] LABS: HEMATOCRIT 36.9 % (35.4-49); HEMOGLOBIN 12.5 GM/dL (11.7-16.9); MCH 30.7 pg (25.7-33.7); MCHC 33.8 g/dl (32.0-35.9); MEAN CELL VOLUME 90.7 fl (80-96); PLATELET COUNT 127 10^3/uL (134-434); RBC 4.07 M/mm3 (4.00-5.60); RDW 13.4 % (11.9-15.9); WHITE BLOOD COUNT 15.6 K/mm3 (4.0-10.0)
[2022-04-01] MEDS: LACTATED RINGERS SOLUTION 1,000 ML IV SCH (17:10)
[2022-04-02] MEDS: HYDROmorphone HCl 2 MG/ML VIAL IVPUSH PRN ×2 (02:13→08:53)
[2022-04-02] MEDS ORDERED: SODIUM CHLORIDE 500 ML IV STA (07:13)
[2022-04-02] MEDS: HYDROmorphone HCl 2 MG/ML VIAL IVPB SCH ×4 (10:10→21:33)
[2022-04-02] MEDS ORDERED: FENTANYL PATCH WASTE TD PRN (10:49)
[2022-04-02] MEDS: fentaNYL 75mcg/hr PATCH.TD72 TD SCH (12:57)
[2022-04-02] MEDS: fentaNYL 50mcg/hr PATCH.TD72 TD SCH (12:59)
[2022-04-02 13:40] LABS: BASO % 0.2 % (0-2.0); HEMATOCRIT 28.7 % (35.4-49); HEMOGLOBIN 9.5 GM/dL (11.7-16.9); LYMPH % 33.9 % (8-40); MCH 30.5 pg (25.7-33.7); MCHC 33.3 g/dl (32.0-35.9); MEAN CELL VOLUME 91.7 fl (80-96); MONO % 9.7 % (3.8-10.2); NEUT % 56.2 % (42.8-82.8); PLATELET COUNT 165 10^3/uL (134-434); RBC 3.13 M/mm3 (4.00-5.60); RDW 13.9 % (11.9-15.9); WHITE BLOOD COUNT 17.9 K/mm3 (4.0-10.0)
[2022-04-02 13:50] LABS: ALBUMIN 3.2 g/dl (3.4-5.0); BLOOD UREA NITROGEN 19.3 mg/dL (7-18); LACTIC ACID 4.6 mmol/L (0.4-2.0)
[2022-04-02 13:53] LABS: CREATININE 1.2 mg/dL (0.55-1.3)
[2022-04-02 13:55] LABS: BILIRUBIN,TOTAL 0.7 mg/dL (0.2-1); TOT PROT 5.6 g/dl (6.4-8.2)
[2022-04-02] MEDS: PARoxetine HCL 20 MG TABLET PO SCH (15:56)
[2022-04-02] MEDS: GABAPENTIN 250 MG/5 ML ORAL SOLUTION, 470 ML BOTTLE PO SCH ×3 (15:56→21:33)
[2022-04-02] MEDS ORDERED: KETOROLAC TROMETHAMINE 30 MG/1 ML VIAL IVPB PRN (17:47)
[2022-04-02 18:42] LABS: HEMATOCRIT 26.6 % (35.4-49); HEMOGLOBIN 8.8 GM/dL (11.7-16.9); MCH 30.3 pg (25.7-33.7); MEAN CELL VOLUME 91.9 fl (80-96); MEAN PLT VOLUME 10.1 fl (7.5-11.1); PLATELET COUNT 148 10^3/uL (134-434); RBC 2.89 M/mm3 (4.00-5.60); RDW 13.6 % (11.9-15.9); WHITE BLOOD COUNT 16.6 K/mm3 (4.0-10.0)
[2022-04-02 19:12] LABS: LACTIC ACID 2.3 mmol/L (0.4-2.0)
[2022-04-02] MEDS: ALPRAZolam 1 MG TABLET PO SCH (21:41)
[2022-04-02] MEDS: LACTATED RINGERS SOLUTION 1,000 ML IV SCH (22:30)
[2022-04-03] MEDS: ACETAMINOPHEN 1000 MG/100 ML BAG IVPB PRN (01:53)
[2022-04-03] MEDS: HYDROmorphone HCl 2 MG/ML VIAL IVPB SCH ×4 (01:55→14:17)
[2022-04-03] MEDS: GABAPENTIN 250 MG/5 ML ORAL SOLUTION, 470 ML BOTTLE PO SCH ×3 (06:27→22:01)
[2022-04-03] MEDS: LACTATED RINGERS SOLUTION 1,000 ML IV SCH (09:01)
[2022-04-03] MEDS ORDERED: ENOXAPARIN NA (PORCINE) 40 MG/0.4 ML DISP.SYRIN SQ SCH (10:00)
[2022-04-03 10:29] LABS: BASO % 0.2 % (0-2.0); EOS % 0.8 % (0-4.5); HEMATOCRIT 23.8 % (35.4-49); LYMPH % 31.4 % (8-40); MCH 30.5 pg (25.7-33.7); MCHC 33.5 g/dl (32.0-35.9); MEAN PLT VOLUME 10.3 fl (7.5-11.1); NEUT % 57.6 % (42.8-82.8); PLATELET COUNT 123 10^3/uL (134-434); RBC 2.62 M/mm3 (4.00-5.60); RDW 13.4 % (11.9-15.9); WHITE BLOOD COUNT 13.3 K/mm3 (4.0-10.0)
[2022-04-03 10:54] LABS: ALBUMIN 2.9 g/dl (3.4-5.0); BLOOD UREA NITROGEN 12.8 mg/dL (7-18)
[2022-04-03 10:57] LABS: CREATININE 0.7 mg/dL (0.55-1.3)
[2022-04-03 10:59] LABS: BILIRUBIN,TOTAL 0.8 mg/dL (0.2-1); TOT PROT 5.1 g/dl (6.4-8.2)
[2022-04-03] MEDS: PARoxetine HCL 20 MG TABLET PO SCH ×2 (11:46→11:47)
[2022-04-03] MEDS: ALPRAZolam 1 MG TABLET PO SCH (22:01)
[2022-04-04] MEDS: GABAPENTIN 250 MG/5 ML ORAL SOLUTION, 470 ML BOTTLE PO SCH (06:10)
[2022-04-04] MEDS: PARoxetine HCL 20 MG TABLET PO SCH (10:45)
[2022-04-04] MEDS: ENOXAPARIN NA (PORCINE) 40 MG/0.4 ML DISP.SYRIN SQ SCH (11:22)
[2022-04-04 11:28] LABS: BASO % 0.2 % (0-2.0); EOS % 0.8 % (0-4.5); HEMATOCRIT 21.8 % (35.4-49); HEMOGLOBIN 7.4 GM/dL (11.7-16.9); LYMPH % 29.1 % (8-40); MCH 30.4 pg (25.7-33.7); MCHC 33.9 g/dl (32.0-35.9); MEAN CELL VOLUME 89.8 fl (80-96); MEAN PLT VOLUME 9.5 fl (7.5-11.1); MONO % 8.8 % (3.8-10.2); NEUT % 61.1 % (42.8-82.8); PLATELET COUNT 139 10^3/uL (134-434); RBC 2.43 M/mm3 (4.00-5.60); RDW 13.3 % (11.9-15.9); WHITE BLOOD COUNT 11.1 K/mm3 (4.0-10.0)
[2022-04-04 11:38] LABS: CALCIUM 7.9 mg/dL (8.5-10.1)
[2022-04-04 11:39] LABS: BLOOD UREA NITROGEN 6.5 mg/dL (7-18)
[2022-04-04 11:42] LABS: CREATININE 0.6 mg/dL (0.55-1.3)
[2022-04-04] MEDS: LACTATED RINGERS SOLUTION 1,000 ML IV SCH (18:56)
[2022-04-04] MEDS: ALPRAZolam 1 MG TABLET PO SCH (21:34)
[2022-04-05] MEDS ORDERED: POTASSIUM CHLORIDE ORAL LIQUID 20 MEQ/15 ML PO ONE (09:15)
[2022-04-05 10:54] LABS: BASO % 0.3 % (0-2.0); EOS % 1.7 % (0-4.5); HEMATOCRIT 23.4 % (35.4-49); HEMOGLOBIN 8.1 GM/dL (11.7-16.9); LYMPH % 35.3 % (8-40); MCH 31.5 pg (25.7-33.7); MCHC 34.5 g/dl (32.0-35.9); MEAN CELL VOLUME 91.3 fl (80-96); MEAN PLT VOLUME 9.2 fl (7.5-11.1); MONO % 9.3 % (3.8-10.2); NEUT % 53.4 % (42.8-82.8); PLATELET COUNT 173 10^3/uL (134-434); RBC 2.56 M/mm3 (4.00-5.60); WHITE BLOOD COUNT 12.5 K/mm3 (4.0-10.0)
[2022-04-05] MEDS: ENOXAPARIN NA (PORCINE) 40 MG/0.4 ML DISP.SYRIN SQ SCH (11:00)
[2022-04-05] MEDS: fentaNYL 50mcg/hr PATCH.TD72 TD SCH (11:03)
[2022-04-05] MEDS: fentaNYL 75mcg/hr PATCH.TD72 TD SCH (11:12)
[2022-04-05 11:15] LABS: CHLORIDE 95 mmol/L (98-107); SODIUM 140 mmol/L (136-145)
[2022-04-05 11:16] LABS: GLUCOSE,RANDOM 84 mg/dL (74-106)
[2022-04-05 11:17] LABS: ALBUMIN 2.8 g/dl (3.4-5.0); BLOOD UREA NITROGEN 7.9 mg/dL (7-18); CALCIUM 7.7 mg/dL (8.5-10.1); CO2 38 mmol/L (21-32)
[2022-04-05 11:18] LABS: MAGNESIUM 1.9 mg/dL (1.8-2.4)
[2022-04-05 11:20] LABS: CREATININE 0.6 mg/dL (0.55-1.3); SGOT/AST 26 U/L (15-37)
[2022-04-05 11:21] LABS: SGPT/ALT 22 U/L (13-61)
[2022-04-05 11:22] LABS: BILIRUBIN,TOTAL 1.1 mg/dL (0.2-1)
[2022-04-05 11:23] LABS: ALK PHOS 88 U/L (45-117)
[2022-04-05 11:26] LABS: ANION GAP 8 MMOL/L (8-16)
[2022-04-05] MEDS ORDERED: KCL 10 MEQ IVPB 10 MEQ/100 ML INFUS.BAG IVPB SCH (12:45)
[2022-04-05] MEDS ORDERED: POTASSIUM CHLORIDE TABS 20 MEQ TABLET.ER (FP) PO ONE (13:30)
[2022-04-05] MEDS ORDERED: MAG HYDROX/AL HYDROX/SIMETH 30 ML UNIT-DOSE CUP PO PRN (14:56)
[2022-04-05] MEDS ORDERED: DEXTROSE 5%-WATER - 1,000 ML IV SCH (15:00)
[2022-04-05] MEDS: ONDANSETRON 4 MG/2 ML VIAL IVPUSH PRN (15:29)
[2022-04-05] MEDS: KCL 10 MEQ IVPB 10 MEQ/100 ML INFUS.BAG IVPB SCH ×2 (15:30→17:24)
[2022-04-05] MEDS: POLYETHYLENE GLYCOL (HEALTHYLAX) 3350 17 GM PACKET PO SCH (15:41)
[2022-04-05] MEDS: ALPRAZolam 1 MG TABLET PO SCH (21:21)
[2022-04-06] MEDS: ONDANSETRON 4 MG/2 ML VIAL IVPUSH PRN ×2 (02:23→09:13)
[2022-04-06] MEDS ORDERED: SODIUM CHLORIDE 500 ML IV STA ×2 (09:11→10:38)
[2022-04-06] MEDS: ENOXAPARIN NA (PORCINE) 40 MG/0.4 ML DISP.SYRIN SQ SCH (09:13)
[2022-04-06] MEDS: POLYETHYLENE GLYCOL (HEALTHYLAX) 3350 17 GM PACKET PO SCH ×2 (09:31→17:25)
[2022-04-06 09:57] LABS: HEMOGLOBIN 8.8 GM/dL (11.7-16.9); MCH 31.5 pg (25.7-33.7); MEAN CELL VOLUME 92.6 fl (80-96); PLATELET COUNT 229 10^3/uL (134-434); RBC 2.81 M/mm3 (4.00-5.60); RDW 13.5 % (11.9-15.9); WHITE BLOOD COUNT 14.6 K/mm3 (4.0-10.0)
[2022-04-06 10:25] LABS: BLOOD UREA NITROGEN 8.3 mg/dL (7-18)
[2022-04-06 10:28] LABS: CREATININE 0.8 mg/dL (0.55-1.3)
[2022-04-06 10:53] LABS: ANISOCYTOSIS 3+; MACROCYTOSIS 0
[2022-04-06] MEDS ORDERED: LACTATED RINGERS SOLUTION 1,000 ML/1,000 ML INFUS.BAG IV SCH (12:45)
[2022-04-06] MEDS ORDERED: SODIUM CHLORIDE 1,000 ML IV SCH (15:15)
[2022-04-06] MEDS ORDERED: fentaNYL 50mcg/hr PATCH.TD72 TD SCH (15:45)
[2022-04-06 17:19] LABS: HEMOGLOBIN 7.8 GM/dL (11.7-16.9); MCH 31.6 pg (25.7-33.7); MCHC 33.8 g/dl (32.0-35.9); MEAN CELL VOLUME 93.5 fl (80-96); MEAN PLT VOLUME 8.3 fl (7.5-11.1); PLATELET COUNT 202 10^3/uL (134-434); RBC 2.46 M/mm3 (4.00-5.60); RDW 13.6 % (11.9-15.9); WHITE BLOOD COUNT 11.7 K/mm3 (4.0-10.0)
[2022-04-06 17:43] LABS: CALCIUM 7.6 mg/dL (8.5-10.1)
[2022-04-06 17:44] LABS: ALBUMIN 2.7 g/dl (3.4-5.0); BLOOD UREA NITROGEN 6.8 mg/dL (7-18)
[2022-04-06 17:47] LABS: CREATININE 0.8 mg/dL (0.55-1.3)
[2022-04-06 17:48] LABS: BILIRUBIN,TOTAL 1.3 mg/dL (0.2-1)
[2022-04-06 17:49] LABS: TOT PROT 4.8 g/dl (6.4-8.2)
[2022-04-06 18:12] LABS: ANISOCYTOSIS 2+; MACROCYTOSIS 0
[2022-04-06] MEDS ORDERED: ACETAMINOPHEN 1000 MG/100 ML BAG IVPB ONE (21:18)
[2022-04-06] MEDS ORDERED: SIMETHICONE 80 MG TAB.CHEW (FP) PO ONE (21:18)
[2022-04-06] MEDS: ALPRAZolam 1 MG TABLET PO SCH (21:52)
[2022-04-06] MEDS: ACETAMINOPHEN 1000 MG/100 ML BAG IVPB ONE ×2 (21:53→21:54)
[2022-04-07] MEDS: LACTATED RINGERS SOLUTION 1,000 ML/1,000 ML INFUS.BAG IV SCH ×2 (06:07→22:09)
[2022-04-07 07:08] VITALS: RESP 20
[2022-04-07 09:32] LABS: BASO % 0.4 % (0-2.0); EOS % 1.4 % (0-4.5); HEMATOCRIT 22.9 % (35.4-49); HEMOGLOBIN 7.8 GM/dL (11.7-16.9); LYMPH % 17.9 % (8-40); MCH 31.4 pg (25.7-33.7); MCHC 34.1 g/dl (32.0-35.9); MEAN CELL VOLUME 92.3 fl (80-96); MEAN PLT VOLUME 8.4 fl (7.5-11.1); MONO % 7.8 % (3.8-10.2); NEUT % 72.5 % (42.8-82.8); PLATELET COUNT 210 10^3/uL (134-434); RBC 2.48 M/mm3 (4.00-5.60); RDW 13.6 % (11.9-15.9); WHITE BLOOD COUNT 10.5 K/mm3 (4.0-10.0)
[2022-04-07] MEDS ORDERED: fentaNYL 25mcg/hr PATCH.TD72 TD SCH (10:00)
[2022-04-07 10:08] LABS: CREATININE 0.7 mg/dL (0.55-1.3)
[2022-04-07 10:09] LABS: ALBUMIN 2.6 g/dl (3.4-5.0); BILIRUBIN,TOTAL 1.2 mg/dL (0.2-1); BLOOD UREA NITROGEN 6.9 mg/dL (7-18); TOT PROT 4.7 g/dl (6.4-8.2)
[2022-04-07 10:31] LABS: ANISOCYTOSIS 1+; MACROCYTOSIS 0
[2022-04-07] MEDS: POLYETHYLENE GLYCOL (HEALTHYLAX) 3350 17 GM PACKET PO SCH (11:16)
[2022-04-07] MEDS: ENOXAPARIN NA (PORCINE) 40 MG/0.4 ML DISP.SYRIN SQ SCH (11:17)
[2022-04-07] MEDS ORDERED: ACETAMINOPHEN 325 MG TABLET (FP) PO PRN (12:13)
[2022-04-07] MEDS ORDERED: KCL 10 MEQ IVPB 10 MEQ/100 ML INFUS.BAG IVPB SCH (14:15)
[2022-04-07] MEDS: KCL 10 MEQ IVPB 10 MEQ/100 ML INFUS.BAG IVPB SCH ×2 (16:39→18:27)
[2022-04-07] MEDS: ALPRAZolam 1 MG TABLET PO SCH (21:19)
[2022-04-08] MEDS: LACTATED RINGERS SOLUTION 1,000 ML/1,000 ML INFUS.BAG IV SCH (04:45)
[2022-04-08] MEDS: fentaNYL 50mcg/hr PATCH.TD72 TD SCH (11:41)
[2022-04-08] MEDS: POLYETHYLENE GLYCOL (HEALTHYLAX) 3350 17 GM PACKET PO SCH (11:41)
[2022-04-08] MEDS: ENOXAPARIN NA (PORCINE) 40 MG/0.4 ML DISP.SYRIN SQ SCH (11:42)
[2022-04-08 12:53] LABS: HEMATOCRIT 29.7 % (35.4-49); HEMOGLOBIN 10.1 GM/dL (11.7-16.9); MCH 31.3 pg (25.7-33.7); MCHC 34.1 g/dl (32.0-35.9); MEAN CELL VOLUME 91.6 fl (80-96); MEAN PLT VOLUME 8.4 fl (7.5-11.1); PLATELET COUNT 274 10^3/uL (134-434); RBC 3.24 M/mm3 (4.00-5.60); RDW 14.1 % (11.9-15.9); WHITE BLOOD COUNT 11.6 K/mm3 (4.0-10.0)
[2022-04-08 13:24] LABS: ALBUMIN 2.8 g/dl (3.4-5.0); BLOOD UREA NITROGEN 5.8 mg/dL (7-18); CALCIUM 8.2 mg/dL (8.5-10.1)
[2022-04-08 13:25] LABS: ANISOCYTOSIS 1+; MACROCYTOSIS 1+
[2022-04-08 13:27] LABS: CREATININE 0.7 mg/dL (0.55-1.3)
[2022-04-08 13:29] LABS: BILIRUBIN,TOTAL 1.5 mg/dL (0.2-1); TOT PROT 5.3 g/dl (6.4-8.2)
[2022-04-08 14:00] VITALS: BP 126/72; PULSE 74; TEMP 98.9
== END 2022-04-08 14:35 | disposition home or self-care (01) | DRG 854 ==
LOC: FER 17:10 → J8W 04-01 05:00
PROVIDERS: ADMIT Internal Medicine; ATTEND Family Medicine
PROC: 0FT44ZZ Resection of Gallbladder, Percutaneous Endoscopic Approach (ICD-10-PCS; principal; 2022-04-01 09:30)
PROC: 30233N1 Transfusion of Nonautologous Red Blood Cells into Peripheral Vein, Percutaneous Approach (ICD-10-PCS; 2022-04-07)
DX: A41.9 Sepsis, unspecified organism (principal); E87.21 Acute metabolic acidosis; K80.42 Calculus of bile duct with acute cholecystitis without obstruction; J98.11 Atelectasis; I10 Essential (primary) hypertension; K74.60 Unspecified cirrhosis of liver; D64.9 Anemia, unspecified; R10.13 Epigastric pain; M79.2 Neuralgia and neuritis, unspecified; R11.2 Nausea with vomiting, unspecified; R13.10 Dysphagia, unspecified; F41.9 Anxiety disorder, unspecified; R50.9 Fever, unspecified; I95.9 Hypotension, unspecified; K83.8 Other specified diseases of biliary tract; Z79.891 Long term (current) use of opiate analgesic; R10.11 Right upper quadrant pain; E80.6 Other disorders of bilirubin metabolism; E87.6 Hypokalemia; R74.01 Elevation of levels of liver transaminase levels; R33.9 Retention of urine, unspecified; G89.29 Other chronic pain; M54.9 Dorsalgia, unspecified; R09.02 Hypoxemia
CPT/HCPCS: 36415; 36430; 71045-TC-FY; 74177-TC; 76705-TC; 80048; 80053; 80076; 82728; 82962; 83540; 83550; 83605; 83690; 83735; 84100; 84484; 85025; 85027; 85610; 85730; 86850; 86900; 86901; 86922; 87040; 88304-TC; 93005; 93010; 93306-TC; 94760; 99285-25; C9803-CS; P9058; Q9967; U0003; U0005

== ENCOUNTER 2023-08-15 04:37 | Day surgery (SDC) | payer OTHER ==
[2023-08-14 13:31] VITALS: BMI 20.3
[2023-08-15 08:44] VITALS: TEMP 98
[2023-08-15] MEDS ORDERED: MIDAZOLAM HCL 2 MG/2 ML SINGLE DOSE VIAL ONE (09:57)
[2023-08-15 11:23] VITALS: RESP 16
[2023-08-15 11:43] VITALS: BP 125/55; PULSE 63
[2023-08-15 12:14] LABS: BASO % 0.8 % (0-2.0); EOS % 2.6 % (0-4.5); HEMATOCRIT 43.1 % (35.4-49); HEMOGLOBIN 14.1 GM/dL (11.7-16.9); LYMPH % 39.1 % (8-40); MCH 30.1 pg (25.7-33.7); MCHC 32.7 g/dl (32.0-35.9); MEAN CELL VOLUME 92.2 fl (80-96); MEAN PLT VOLUME 8.7 fl (7.5-11.1); MONO % 6.2 % (3.8-10.2); NEUT % 51.3 % (42.8-82.8); PLATELET COUNT 129 10^3/uL (134-434); RBC 4.67 M/mm3 (4.00-5.60); RDW 13.7 % (11.9-15.9); WHITE BLOOD COUNT 7.3 K/mm3 (4.0-10.0)
[2023-08-15 12:20] LABS: INR 1.1 (0.83-1.09); PROTHROMBIN TIME (PATIENT) 12.8 SEC (9.7-13.0)
[2023-08-15 12:36] LABS: CHLORIDE 104 mmol/L (98-107); POTASSIUM 3.9 mmol/L (3.5-5.1); SODIUM 141 mmol/L (136-145)
[2023-08-15 12:38] LABS: ANION GAP 6 mmol/L (4-13); BLOOD UREA NITROGEN 12.1 mg/dL (7-18); CALCIUM 9.1 mg/dL (8.5-10.1); CO2 31 mmol/L (21-32); GLUCOSE,RANDOM 95 mg/dL (74-106)
[2023-08-15 12:41] LABS: CREATININE 0.9 mg/dL (0.55-1.3); SGOT/AST 34 U/L (15-37); SGPT/ALT 27 U/L (13-61)
[2023-08-15 12:43] LABS: BILIRUBIN,TOTAL 0.7 mg/dL (0.2-1); TOT PROT 7.4 g/dl (6.4-8.2)
[2023-08-15 12:44] LABS: ALK PHOS 98 U/L (45-117)
== END 2023-08-15 12:15 | disposition home or self-care (01) ==
LOC: JASU-ENDO 04:37
PROVIDERS: ATTEND Internal Medicine Gastroenterology
PROC: 0DB98ZX Excision of Duodenum, Via Natural or Artificial Opening Endoscopic, Diagnostic (ICD-10-PCS; 2023-08-15)
PROC: 0DB78ZX Excision of Stomach, Pylorus, Via Natural or Artificial Opening Endoscopic, Diagnostic (ICD-10-PCS; 2023-08-15)
PROC: 0DB68ZX Excision of Stomach, Via Natural or Artificial Opening Endoscopic, Diagnostic (ICD-10-PCS; 2023-08-15)
PROC: 0DBM8ZX Excision of Descending Colon, Via Natural or Artificial Opening Endoscopic, Diagnostic (ICD-10-PCS; principal; 2023-08-15 09:00)
DX: Z12.11 Encounter for screening for malignant neoplasm of colon (principal); K63.5 Polyp of colon; K57.30 Diverticulosis of large intestine without perforation or abscess without bleeding; K29.50 Unspecified chronic gastritis without bleeding; K21.00 Gastro-esophageal reflux disease with esophagitis, without bleeding; Z80.0 Family history of malignant neoplasm of digestive organs; R63.4 Abnormal weight loss
CPT/HCPCS: 36415; 80053; 82105; 85025; 85610; 86140; 88305-TC; 88342-TC